=== PATIENT | male | born 1970 | race Caucasian/White ===

== ENCOUNTER 2019-03-06 08:55 | Day surgery (SDC) | payer OTHER ==
--- NOTE | 2019-03-05 13:32 | RAD REPORT ---
EXAM DESCRIPTION: RAD - Chest Pa And Lat (2 Views) - 03/05/2019 1:22 pm CLINICAL HISTORY: Preop chest, soft tissue mass removal COMPARISON: None. TECHNIQUE: PA and lateral views of the chest were obtained. FINDINGS: The lungs are clear. Heart size is normal and central vasculature is within normal limit s. No pleural effusion or pneumothorax seen. No acute bony finding noted. No aortic abnormality. IMPRESSION: No acute cardiopulmonary process.
[2019-03-05 14:39] LABS: Absolute Lymphocytes (CBC) 2.5 K/uL (0.7-4.9); Absolute Monocytes 0.9 K/uL (0.1-1.3); Absolute Neutrophil 6.3 K/uL (1.8-8.0); Basophils % 0.9 % (0-1.3); Eosinophils % 1.1 % (0-4.4); Hematocrit 45.4 % (39.6-49.0); Lymphocytes % 25.4 % (15.3-44.8); MPV 8.3 fL (7.6-11.3); Monocytes % 9.5 % (3.3-12.3); RBC Red Blood Cell Count 4.84 M/uL (4.33-5.43)
[2019-03-05 14:47] LABS: Potassium 4.4 mmol/L (3.5-5.1)
--- NOTE | 2019-03-06 08:06 | EKG ---
Test Date: 2019-03-05 Test Time: 13:08:10 Telecommunications Equipment Installer: FRANCO MEASUREMENT RESULTS: Intervals: Rate: 83 MN: 132 QRSD: 104 QT: 350 QTc: 411 [place]: P: 54 MN: 132 QRS: 85 T: 43 INTERPRETIVE STATEMENTS: Normal sinus rhythm Normal ECG No previous ECG available for comparison Electronically Signed On 03-06-19 08:04:57 CDT by John Raman
[2019-03-06] MEDS ORDERED: CEFAZOLIN/SWI 1gm 1 GM/10 ML SYR ONE (09:25)
[2019-03-06] MEDS ORDERED: Ringers Lactate 1,000 ML IV ONE (09:25)
[2019-03-06] MEDS ORDERED: FENTANYL CITR 100 MCG/2 ML ONE (09:27)
[2019-03-06] MEDS ORDERED: LIDOCAINE 2% MPF 5 ML VIAL ONE (09:27)
[2019-03-06] MEDS ORDERED: MIDAZOLAM HCL 2 MG/2 ML INJ ONE (09:27)
[2019-03-06] MEDS ORDERED: PROPOFOL 200 MG/20 ML VIAL IV ONE (09:27)
[2019-03-06] MEDS ORDERED: LIDOCAINE 1% MPF 30 ML VIAL ONE (10:03)
[2019-03-06] MEDS ORDERED: KETOROLAC 30 MG/ML INJ ONE (10:57)
[2019-03-06] MEDS ORDERED: Mastisol Adhesive Liq ONE (11:01)
--- NOTE | 2019-03-06 21:08 | OP ---
Date of Procedure: 03/06/2019 Surgeon: Dorian Lanza MD Preoperative Diagnosis: Scalp mass, symptomatic. Postoperative Diagnosis: Scalp mass, symptomatic. Procedure: Excision of scalp mass, 3 x 4 cm, and layered closure. Estimated Blood Loss: Minimal. Specimen: Scalp mass. Finding: As above. Anesthesia: General. Complications: None. Disposition: The patient tolerated the procedure in stable condition, taken to the Recovery in good general condition. Procedure In Detail: The patient was brought to the OR, placed in supine position. General anesthes ia begun. The patient was prepped and draped in the usual sterile fashion. Marcaine 0.5% was infilt rated locally. A 15-blade was used to make a 4 cm incision. Subcutaneous tissue divided. We notice d a 3 x 4 cm cyst in the subcutaneous space. It was excised with the entire capsule intact. Wound i rrigated. Bleeding controlled with cautery. 3-0 Chromic was used to approximate the subcutaneous ti ssue and 4-0 nylon used to close skin. Sterile dressing was applied. The patient was awakened and taken to Recovery in good ge neral condition. SHELBIE/MOHINDER Voice ID: [id number] Report ID: [id number]
--- NOTE | 2019-03-06 21:31 | DS ---
Date of Discharge: 03/06/2019 The patient will go to Day Surgery and home when stable. Disposition: Home. Condition: Stable. Discharge Instructions: Resume home medications and diet. Activity as tolerated. No heavy lifting. Remove outer dressing in 2 days. Shower. Keep wound clean and dry. Keep Steri-Strips on at all t imes. Follow up in my office in 2 weeks call for appointment. Tylenol No. 3 one tablet p.o. q.4 p.r .n. pain. /MODL Voice ID: [id number] Report ID: [id number]
== END 2019-03-06 12:10 | disposition home or self-care (01) ==
LOC: OR 08:55
PROVIDERS: ATTEND Surgery
PROC: 0JB00ZX Excision of Scalp Subcutaneous Tissue and Fascia, Open Approach, Diagnostic (ICD-10-PCS; principal; 2019-03-06 10:45)
DX: L72.11 Pilar cyst (principal); F17.210 Nicotine dependence, cigarettes, uncomplicated
CPT/HCPCS: 36415; 71046; 80048; 85025; 88304; 88305; 93005; J0690; J2250; J2704; J3010